=== PATIENT | female | born 1960 | race Caucasian/White ===

== ENCOUNTER → 2016-08-04 | Outpatient (CLI) | payer BC, OTHER ==
--- NOTE | 2016-08-04 15:37 | MAM ---
EXAM DESCRIPTION: MAMMO BREAST SCREENING BILATERAL CAD, images were reviewed with CAD technology, R2 computer-aided detection. CLINICAL HISTORY: [facility]. COMPARISON: 2013 and 2014. FINDINGS: Routine views are obtained. Scattered glandular pattern with nodular contour and increased mammographic density. New nodular density retroareolar right breast 9 o'clock. No clustered microcalcifications or architectural distortion.. IMPRESSION: Incomplete study. BIRAD CATEGORY: 0 INCOMPLETE RECOMMENDATIONS: FOLLOW-UP: Directed right breast ultrasound. According to the [employer], yearly mammograms are recommended starting at age 40 and continuing as long as a woman is in good health. Any breast change noted on a breast self-exam should be reported promptly to the patient's healthcare provider. Breast MRI is recommended for women with an approximately 20-25% or greater lifetime risk of breast cancer, including women with a strong family history of breast or ovarian cancer and women who have been treated for Hodgkin's disease. Electronically signed by: Caron Vazquez 08/04/2016 15:35
== END | disposition home or self-care (01) ==
LOC: MAMMO 10:55
PROVIDERS: ATTEND Family Medicine
DX: Z12.31 Encounter for screening mammogram for malignant neoplasm of breast (principal)
CPT/HCPCS: 77067; G0202

== ENCOUNTER → 2016-08-20 | Outpatient (CLI) | payer OTHER ==
--- NOTE | 2016-08-24 00:43 | US ---
History: [ ] Date of exam: 08/20/2016 Services provided: [Directed Limited right breast ultrasound ] FINDINGS: [ Study is correlated with mammogram from 08/04/2016. Lobulated low density new nodule right breast mammographically just to the outside of the retroareolar nipple line corresponds to sonographically 12:00 gently lobulated 10 mm cyst. Smaller scattered cysts are seen in the upper outer right breast without sonographically suspicious finding.] IMPRESSION: [ Benign exam. New mammographic nodule corresponds to a small simple cyst right breast.] Recommendations: [Routine annual mammography. Findings and recommendations were communicated to the patient. ] [BIRAD CATEGORY: 2 BENIGN ] Electronically signed by: Caron Vazquez MD 08/20/2016 10:52 AM [facility]
== END | disposition home or self-care (01) ==
LOC: MAMMO 09:28
PROVIDERS: ATTEND Family Medicine
DX: Z12.31 Encounter for screening mammogram for malignant neoplasm of breast (principal)

== ENCOUNTER → 2016-11-04 | Outpatient (CLI) | payer OTHER | END | disposition home or self-care (01) | LOC: LAB.O 08:46 | PROVIDERS: ATTEND Otolaryngology | DX: D44.0 Neoplasm of uncertain behavior of thyroid gland (principal); D34 Benign neoplasm of thyroid gland ==

== ENCOUNTER → 2017-01-27 | Outpatient (CLI) | payer OTHER | END | disposition home or self-care (01) | LOC: LAB.O 10:55 | PROVIDERS: ATTEND Otolaryngology | DX: E04.2 Nontoxic multinodular goiter (principal); C73 Malignant neoplasm of thyroid gland ==

== ENCOUNTER → 2017-02-03 | Outpatient (CLI) | payer OTHER | END | disposition home or self-care (01) | LOC: LAB.O 15:41 | PROVIDERS: ATTEND Otolaryngology | DX: E89.2 Postprocedural hypoparathyroidism (principal) ==

== ENCOUNTER → 2017-03-03 | Outpatient (CLI) | payer OTHER | LOC: GMAM 11:03 | PROVIDERS: ATTEND Family Medicine | DX: E03.8 Other specified hypothyroidism (principal) ==

== ENCOUNTER → 2017-04-12 | Outpatient (CLI) | payer OTHER ==
--- NOTE | 2017-04-12 19:59 | US ---
EXAM DESCRIPTION: Thyroid: Ultrasound. CLINICAL HISTORY: THYROID CANCER. Thyroidectomy. Taking Synthroid. COMPARISON: Ultrasound thyroid gland 10/18/2015. TECHNIQUE: Transcutaneous scannin-dimensional and Doppler modes. FINDINGS: Somewhat echogenic material is visualized in the thyroid bed bilaterally between the trachea and the vessels. In the left thyroid bed, there appears to be a small cystlike structure. Measures 7.5 x 5.3 mm. A small band of tissue is also seen anterior to the trachea in the region of the isthmus. No definite mass. No abnormal vascularity. No fluid collections. IMPRESSION: Questionable cyst in the left thyroid bed. Suggestion of tissue in the region of the isthmus. No mass is noted. If residual thyroid tissue is suspected, consider radionuclide imaging for further evaluation. Electronically signed by: Jaycob Ferrari MD 04/12/2017 7:58 PM CDT
== END | disposition home or self-care (01) ==
LOC: US 15:11
PROVIDERS: ATTEND Internal Medicine Endocrinology, Diabetes & Metabolism
DX: C73 Malignant neoplasm of thyroid gland (principal)

== ENCOUNTER → 2017-08-24 | Outpatient (CLI) | payer OTHER | LOC: LAB.O 09:40 | PROVIDERS: ATTEND Internal Medicine Endocrinology, Diabetes & Metabolism | DX: C73 Malignant neoplasm of thyroid gland (principal) ==

== ENCOUNTER → 2017-09-14 | Outpatient (CLI) | payer OTHER ==
--- NOTE | 2017-09-16 08:40 | MAM ---
EXAM DESCRIPTION: 3D Screening BILATERAL : Digital Mammography. CLINICAL HISTORY: 57 years Female ANNUAL SCREENING . No complaints. No family history of breast cancer. Hysterectomy. No HRT. Did not return to this facility for diagnostic right breast ultrasound following most recent screening at this facility. COMPARISON: 2-D digital screening bilateral studies 08/04/2016 and 05/16/2015. Report from prior examination also reviewed. TECHNIQUE: Bilateral CC and MLO projection full-field images, 3-D tomosynthesis digital mammographic technique. Also bilateral synthesized CC/ MLO full-field images. CAD not utilized. FINDINGS: The breast parenchymal density pattern is: Heterogeneously dense breast tissue, which may obscure small masses. No skin thickening or nipple retraction bilateral axillary lymph nodes. Bilateral solitary microcalcifications. No focal, stellate mass or density, focal asymmetry , and no suspicious microcalcifications bilaterally. Stable mammograms compared to prior studies, taking into account differences in mammographic technique IMPRESSION: BI-RADS CATEGORY: 2 - BENIGN FINDINGS. FOLLOW UP: Routine digital bilateral screening, one year interval from August 2017. Written communication explaining the IMPRESSION and follow-up, will be mailed to the patient and referring health care provider. According to the [employer], yearly mammograms are recommended starting at age 40 and continuing as long as a woman is in good health. Any breast change noted on a breast self-exam should be reported promptly to the patient's healthcare provider. Breast MRI is recommended for women with an approximately 20-25% or greater lifetime risk of breast cancer, including women with a strong family history of breast or ovarian cancer and women who have been treated for Hodgkin's disease. A negative mammographic report should not delay tissue diagnosis in patients with significant clinical history or physical findings. Extremely dense breast tissue limits the sensitivity of digital mammography. Electronically signed by: Jaycob Ferrari MD 09/16/2017 8:38 AM CDT
== END ==
LOC: MAMMO 09:30
PROVIDERS: ATTEND Family Medicine
DX: Z12.31 Encounter for screening mammogram for malignant neoplasm of breast (principal)

== ENCOUNTER → 2017-09-30 | Outpatient (CLI) | payer OTHER ==
--- NOTE | 2017-09-30 12:55 | MRI ---
Study: MRI of the Right Shoulder. Indication: SHOULDER PAIN Technique: Multiplanar, multi sequence MRI of the right shoulder was obtained without intravenous contrast. Comparison: None. Findings: Moderate hypertrophic AC joint osteoarthritis with reactive marrow edema distal clavicular and acromion. Type I acromion with moderate lateral downsloping. Supraspinatus and infraspinatus tendinosis with low-grade interstitial tearing throughout the supraspinatus tendon insertion and involving up to 30% of expected tendon thickness. No tendon retraction. Subscapularis tendinosis with intermediate grade articular tearing superior two thirds of the insertion. Teres minor tendon intact. Rotator cuff musculature normal without atrophy, fatty infiltration, or intramuscular edema. Long head biceps tendon intact. Circumferential labral truncation noted. Free edge fraying throughout the posterior labrum. No acute fracture or advanced glenohumeral joint osteoarthritis. Tiny joint effusion. Thickening and edema inferior glenohumeral ligament which can be seen with adhesive capsulitis. Impression: Supraspinatus and infraspinatus tendinosis with low-grade interstitial tearing throughout the supraspinatus tendon insertion. Subscapularis tendinosis with intermediate grade articular tearing superiorly. Circumferential labral truncation with free edge fraying posteriorly. Adhesive capsulitis. Moderate hypertrophic AC joint osteoarthritis as above. Electronically signed by: Keenan Mckeon MD 09/30/2017 12:54 PM CDT
== END | disposition home or self-care (01) ==
LOC: MRI 08:56
PROVIDERS: ATTEND Family Medicine
DX: M65.811 Other synovitis and tenosynovitis, right shoulder (principal)

== ENCOUNTER → 2017-12-09 | Outpatient (CLI) | payer OTHER ==
--- NOTE | 2017-12-09 11:00 | RAD ---
EXAM DESCRIPTION: Foot,Right 3 Views CLINICAL HISTORY: RIGHT FOOT PAIN COMPARISON: 02 December 2017 TECHNIQUE: 3 views right FINDINGS: Soft tissue swelling is observed laterally. Minimal periosteal reaction is observed along the distal aspect of the fifth metatarsal. IMPRESSION: Exam demonstrates evidence of a healing fracture of the distal aspect of the fifth metatarsal Electronically signed by: Jose Angel Oliver MD 12/09/2017 10:59 AM CDT
== END ==
LOC: RAD 08:20
PROVIDERS: ATTEND Orthopaedic Surgery
DX: S92.301A Fracture of unspecified metatarsal bone(s), right foot, initial encounter for closed fracture (principal)

== ENCOUNTER → 2018-01-03 | Outpatient (CLI) | payer OTHER | LOC: GMAM 13:00 | PROVIDERS: ATTEND Family Medicine | DX: E03.8 Other specified hypothyroidism (principal) ==

== ENCOUNTER → 2018-01-06 | Outpatient (CLI) | payer OTHER ==
--- NOTE | 2018-01-06 08:41 | RAD ---
EXAM DESCRIPTION: Foot,Right 2 Views CLINICAL HISTORY: 57 years, Female, CLOSED FRACTURE OF METATARSAL BONE COMPARISON: Previous study December 10, 1999 8:15 TECHNIQUE: AP, lateral, and oblique views of the right foot FINDINGS: Mild deformities of the heads of the right distal fourth and fifth metatarsals is seen consistent with healing fractures. Other bones appear intact. Lateral view shows intact talus and calcaneus with mild dorsal and plantar calcaneal spurring. There is no other bone, joint, or soft tissue abnormality observed. There is no radiopaque foreign body. IMPRESSION: Healing fractures of the heads of the distal right fourth and fifth metatarsals. Electronically signed by: Jurgen Sawyer MD 01/06/2018 8:39 AM CDT
== END ==
LOC: RAD 07:58
PROVIDERS: ATTEND Orthopaedic Surgery
DX: S92.301D Fracture of unspecified metatarsal bone(s), right foot, subsequent encounter for fracture with routine healing (principal)

== ENCOUNTER → 2018-03-16 | Outpatient (CLI) | payer OTHER | LOC: GMAM 10:41 | PROVIDERS: ATTEND Family Medicine | DX: M25.50 Pain in unspecified joint (principal) ==

== ENCOUNTER → 2018-05-20 | Outpatient (CLI) | payer OTHER | LOC: LAB.O 08:56 | PROVIDERS: ATTEND Physician Assistant | DX: C73 Malignant neoplasm of thyroid gland (principal) ==

== ENCOUNTER → 2018-08-16 | Outpatient (CLI) | payer OTHER | LOC: GMAM 11:15 | PROVIDERS: ATTEND Family Medicine | DX: E03.8 Other specified hypothyroidism (principal) ==

== ENCOUNTER → 2019-05-18 | Outpatient (CLI) | payer OTHER | LOC: SL 19:21 | PROVIDERS: ATTEND Family Medicine | DX: G47.00 Insomnia, unspecified (principal); G47.9 Sleep disorder, unspecified; R06.83 Snoring; E66.01 Morbid (severe) obesity due to excess calories ==

== ENCOUNTER → 2019-07-06 | Outpatient (CLI) | payer OTHER ==
--- NOTE | 2019-07-10 16:38 | MAM ---
EXAM DESCRIPTION: 3D Screening BILATERAL : Digital Mammography. CLINICAL HISTORY: 59 years Female ANNUAL SCREENING . No complaints. No personal or family history of breast cancer. Menarche age 7. Childbirth age 19. Hysterectomy age 25. HRT 5 or more years ago.. Lifetime risk of developing breast cancer (Tyrer-Cuzick model)(%): 7.0. COMPARISON: Bilateral screening digital breast tomosynthesis August 2019 and 2-D digital screening bilateral mammography July 2016. TECHNIQUE: Bilateral CC and MLO projection full-field images, digital tomosynthesis mammographic technique. Bilateral digital 2-D full-field MLO images. CAD not available for tomosynthesis or 2-D images. FINDINGS: The breast parenchymal density pattern is: Heterogeneously dense breast tissue, which may obscure small masses. No skin thickening or nipple retraction. Bilateral axillary lymph nodes. Bilateral solitary scattered microcalcifications. No new focal, stellate mass or density, focal asymmetry , and no suspicious microcalcifications bilaterally. Stable mammograms compared to prior study. IMPRESSION: Benign exam. BIRAD CATEGORY: 2 BENIGN FINDINGS. RECOMMENDATIONS: FOLLOW UP: Routine digital bilateral mammographic screening, one year interval from June 2018. Written communication explaining the IMPRESSION and follow-up, will be mailed to the patient and referring health care provider. According to the [employer], yearly mammograms are recommended starting at age 40 and continuing as long as a woman is in good health. Any breast change noted on a breast self-exam should be reported promptly to the patient's healthcare provider. Breast MRI is recommended for women with an approximately 20-25% or greater lifetime risk of breast cancer, including women with a strong family history of breast or ovarian cancer and women who have been treated for Hodgkin's disease. A negative mammographic report should not delay tissue diagnosis in patients with significant clinical history or physical findings. Extremely dense breast tissue limits the sensitivity of digital mammography. Electronically signed by: Jaycob Ferrari MD 07/10/2019 4:37 PM PATIENT COORDINATOR FRONT DESK
== END ==
LOC: MAMMO 08:30
PROVIDERS: ATTEND Family Medicine
DX: Z12.31 Encounter for screening mammogram for malignant neoplasm of breast (principal)

== ENCOUNTER 2019-11-21 11:43 | Emergency (ER) | payer OTHER ==
[2019-11-21 11:59] VITALS: O2SAT 97
[2019-11-21] MEDS ORDERED: HYDROcodone 5MG/APAP 325MG 1 EA TAB PO ONE (12:00)
[2019-11-21] MEDS ORDERED: ONDANSETRON 4 MG TAB PO ONE (12:02)
[2019-11-21] MEDS ORDERED: LIDOCAINE 1% 10 ML VIAL INJ ONE (12:03)
[2019-11-21] MEDS ORDERED: TETANUS,DIPHTHERIA,PERTUSSIS 1 EA SYG IM ONE (12:03)
--- NOTE | 2019-11-21 12:11 | ED.PDOC ---
History of Present Illness - General Chief Complaint: Upper Extremity Injury Stated Complaint: burn and lac to left hand after fell on chainsaw Time Seen by Provider: 11/21/19 12:00 Source: patient Exam Limitations: no limitations Additional Information: The patient is a 59F with no significant past medical history who presents with left hand wound. She fell onto a chainsaw with her left hand. The saw was not running but it was hot. She complains of laceration to her left ring finger and burn to her left hand. She does not know when her last tetanus shot was. No other complaints of injury at this time. - History of Present Illness Allergies/Adverse Reactions: Allergies Codeine Adverse Reaction (Verified 11/21/19 11:59) Sulfa Antibiotics Adverse Reaction (Verified 11/21/19 11:59) Home Medications: Ambulatory Orders Bacitracin (Topical) [Bacitracin] 500 unit EX BID #1 unit 11/21/19 Review of Systems - Review of Systems Constitutional: States: no symptoms reported EENTM: States: no symptoms reported Respiratory: States: no symptoms reported Cardiology: States: no symptoms reported Gastrointestinal/Abdominal: States: no symptoms reported Genitourinary: States: no symptoms reported Musculoskeletal: States: no symptoms reported Skin: States: other - burn to hand, laceration to left ring finger Neurological: States: no symptoms reported Endocrine: States: no symptoms reported Hematologic/Lymphatic: States: no symptoms reported All other Systems: Reviewed and Negative Past Medical History (General) - Patient Medical History Hx Asthma: No Hx of COPD: No Hx Cardiac Disorders: No Hx Congestive Heart Failure: No Hx Hypertension: No Hx Diabetes: No Hx Cancer: Yes - thyroid Surgical History: Hysterectomy - Vaccination History Hx Tetanus, Diphtheria Vaccination: No Hx Influenza Vaccination: Yes Hx Pneumococcal Vaccination: No - Social History Hx Tobacco Use: No Hx Alcohol Use: No Hx Substance Use: No Hx Substance Use Treatment: No Hx Depression: Yes - lexapro - Female History Patient is a Female of Child Bearing Age (10 -59 yrs old): No Family Medical History - Family History Mother Family History: Unknown Physical Exam - Physical Exam General Appearance: No apparent distress Cardiovascular/Respiratory: no respiratory distress Hand Exam: laceration - 1cm laceration to the left ring finger. FDS/FDP intact, no bleeding, normal capillary refill, soft tissue tenderness - partial thickness burn to hypothenar eminenence, volar surface of left hand. not circumferential Neuro/Tendon: normal sensation, normal motor functions, normal tendon functions Mental Status: alert, oriented x 3 Skin Exam: normal color, warm/dry Progress - Progress Progress: 11/21/19 12:38 Wound repaired, discussed wound and burn care in detail. Will follow up with PCP. Procedures - Laceration/Wound Repair Left Finger Wound's Depth, Shape: superficial, irregular Wound Explored: clean Irrigated w/ Saline (cc's): 500 Wound Debrided: minimal Wound Repaired With: sutures Suture Size/Type: 5:0, vicryl rapide Number of Sutures: 4 Layer Closure?: No Sterile Dressing Applied?: Yes Departure - Departure Clinical Impression: Laceration Time of Disposition: 12:39 Disposition: Discharge to Home or Self Care Condition: Fair Departure Forms: ED Discharge - Pt. Copy, Patient Portal Self Enrollment Instructions: Laceration Repair With Stitches (DC), Skin Pastor (DC) Diet: resume usual diet Activity: increase activity as tolerated Referrals: Tee Early MD [Primary Care Provider] - 1-2 Weeks Prescriptions: Bacitracin (Topical) [Bacitracin] 500 unit EX BID #1 unit Home Medications: Ambulatory Orders Bacitracin (Topical) [Bacitracin] 500 unit EX BID #1 unit 11/21/19
[2019-11-21] MEDS ORDERED: SILVER SULFADIAZINE 1 % 25 GM TUBE TOP ONE (12:21)
[2019-11-21] MEDS ORDERED: NEOMYCIN-BACITRACIN-POLYMYXIN 0.9 GM UD TOP ONE (13:02)
[2019-11-21 13:20] VITALS: BP 174/100; TEMP 97.6
== END 2019-11-21 13:20 | disposition home or self-care (01) ==
LOC: ER 11:43
DX: S61.215A Laceration without foreign body of left ring finger without damage to nail, initial encounter (principal); T23.202A Burn of second degree of left hand, unspecified site, initial encounter; T31.0 Burns involving less than 10% of body surface; W18.00XA Striking against unspecified object with subsequent fall, initial encounter; X19.XXXA Contact with other heat and hot substances, initial encounter; Y92.9 Unspecified place or not applicable

== ENCOUNTER → 2020-03-11 | Outpatient (CLI) | payer OTHER | LOC: GMAM 14:49 | PROVIDERS: ATTEND Family Medicine | DX: E03.8 Other specified hypothyroidism (principal); E78.2 Mixed hyperlipidemia; E55.9 Vitamin D deficiency, unspecified ==

== ENCOUNTER → 2020-03-26 | Outpatient (CLI) | payer OTHER | LOC: GMAM 16:49 | PROVIDERS: ATTEND Family Medicine | DX: Z11.59 Encounter for screening for other viral diseases (principal) ==